=== PATIENT | female | born 1965 | race Two or more races ===

== ENCOUNTER → 2018-05-01 | Outpatient (CLI) | payer BC, OTHER ==
--- NOTE | 2018-05-02 16:13 | WOMENS IMAGING REPORT ---
EXAM DESCRIPTION: 3D SCREENING MAMMO BILAT COMPLETED DATE/TIME: 05/01/2018 11:03 am REASON FOR STUDY: SCREENING MAMMO Z12.31 ENCNTR SCREEN MAMMOGRAM FOR MALIGNANT NEOPLASM OF ENDY COMPARISON: 11/21/2013 TECHNIQUE: Standard craniocaudal and mediolateral oblique views of each breast recorded using digita l acquisition and breast tomosynthesis. LIMITATIONS: None. FINDINGS: No masses, calcifications or architectural distortion. No areas of suspicion. Read with the assistance of CAD. [facility] R2 Cenova Version 1.3 .[facility] - R2 Cenova Version 1.3 .[facility] Imaging - R2 Cenova Version 2.4 .[facility] - R2 Cenova Version 2.4 .[facility] - R2 [employer]ifier Version 9.2 IMPRESSION: NORMAL MAMMOGRAM. BIRADS 1. BREAST DENSITY: a. The breasts are almost entirely fatty. BIRAD: 1 NEGATIVE RECOMMENDATION: ROUTINE SCREENING Please continue yearly bilateral screening mammography/tomosynthesis in April 2019. COMMENT: The patient has been notified of the results by letter per [place] requirements. Additional no tification policies are in place for contacting patient with suspicious or incomplete findings. Quality ID #[id number]: The [employer] recommends an annual screening mammogram for women aged 40 years or over. This facility utilizes a reminder system to ensure that all patients receive reminder letters, and/or direct phone calls for appointments. This includes reminders for routine scr eening mammograms, diagnostic mammograms, or other Breast Imaging Interventions when appropriate. Th is patient will be placed in the appropriate reminder system. The [employer] (ACR) has developed recommendations for screening MRI of the breast s in certain patient populations, to be used in conjunction with mammography. Breast MRI surveillanc e may be appropriate for women with more than 20% lifetime risk of developing breast cancer as deter mined by genetic testing, significant family history of the disease, or history of mantle radiation f or Hodgkins Disease. ACR Practice Guidelines 2008. DBT Technology DBT is a type of tomographic mammography. With conventional mammography, overlapping breast tissue ma y make lesions difficult to detect, even with good compression. DBT uses an x-ray tube that rotates a round the breast, taking images at different angles. These images are then combined to create thin sl ices of the breast that the radiologist can view as a 3D reconstruction. The [employer] unit can perform full-field digital mammograms (2D imaging); or DBT (3D imaging); or both, in a combination mode that quickly performs both the mammogram and the tomosynthesis scan while the breast is still compressed. PQRS 6045F: Fluoroscopic imaging is not utilized for breast tomosynthesis. TECHNICAL DOCUMENTATION: FINDING NUMBER: (1) ASSESSMENT: (1) JOB ID: [id number] [employer]- All Rights Reserved Reading location - IP/workstation name: [email or web address]
== END ==
LOC: WI 09:38
PROVIDERS: ATTEND Internal Medicine
DX: Z12.31 Encounter for screening mammogram for malignant neoplasm of breast (principal)
CPT/HCPCS: 77063; 77067

== ENCOUNTER 2018-05-04 18:15 | Inpatient (IN) | payer OTHER ==
[2018-05-04] MEDS ORDERED: NORMAL SALINE 1000 ML 1,000 ML IV ONE ×2 (19:16→20:33)
--- NOTE | 2018-05-04 19:17 | ER Document Report ---
ED Medical Screen (RME) - General Chief Complaint: High Blood Sugar Stated Complaint: HIGH BLOOD SUGAR Time Seen by Provider: 05/04/18 19:13 TRAVEL OUTSIDE OF THE [place] IN LAST 30 DAYS: No - HPI Patient complains to provider of: Hyperglycemia Notes: 05/04/18 19:17 Patient is a 53-year-old female presenting to the emergency room complaining of increased thirst and increased urination over the past few days, took a blood sugar at home and it read high, reading high in triage area as well, no history of diabetes PRIOR to day - Related Data Allergies/Adverse Reactions: codeine [Codeine] Allergy (Mild, Verified 03/28/14 07:05) crazy Past Medical History - Past Medical History Cardiac Medical History: Reports: Hx Coronary Artery Disease, Hx Hypertension Denies: Hx Heart Attack Pulmonary Medical History: Denies: Hx Asthma, Hx Bronchitis, Hx COPD, Hx Pneumonia Neurological Medical History: Denies: Hx Cerebrovascular Accident, Hx Seizures Musculoskeltal Medical History: Denies Hx Arthritis Past Surgical History: Reports: Hx Hysterectomy - Immunizations Hx Diphtheria, Pertussis, Tetanus Vaccination: Yes Physical Exam - Vital signs Vitals: Temp Pulse Resp BP Pulse Ox 97.9 F 90 20 96/67 L 100 05/04/18 18:40 05/04/18 18:40 05/04/18 18:40 05/04/18 18:40 05/04/18 18:40 Course - Vital Signs Vital signs: Temp Pulse Resp BP Pulse Ox 97.9 F 90 20 96/67 L 100 05/04/18 18:40 05/04/18 18:40 05/04/18 18:40 05/04/18 18:40 05/04/18 18:40 Doctor's Discharge - Discharge Referrals: CHERISE SANTIAGO MD [Primary Care Provider] - Follow up as needed
[2018-05-04 19:58] LABS: ABSOLUTE BASOPHILS # (AUTO) 0.1 10^3/uL (0.0-0.2); ABSOLUTE EOSINOPHILS # (AUTO) 0.1 10^3/uL (0.0-0.6); ABSOLUTE LYMPHOCYTES (AUTO) 3.8 10^3/uL (0.5-4.7); ABSOLUTE MONOCYTES (AUTO) 0.7 10^3/uL (0.1-1.4); ABSOLUTE NEUT (AUTO) 6.2 10^3/uL (1.7-8.2); BASOPHILS % (AUTO) 1.1 % (0-2); EOSINOPHILS % (AUTO) 0.6 % (0-6); HEMATOCRIT 44.7 % (36.0-47.0); HEMOGLOBIN 14.5 g/dL (12.0-15.5); MEAN CORPUSCULAR HGB CONC 32.5 g/dL (32.0-36.0); MEAN CORPUSCULAR VOLUME 80 fl (80-97); MONOCYTES % (AUTO) 6.8 % (3-13); PLATELET COUNT 397 10^3/uL (150-450); RED BLOOD COUNT 5.58 10^6/uL (3.72-5.28); RED CELL DISTRIBUTION WIDTH 16.6 % (11.5-14.0); SEGMENTED NEUTROPHILS % (AUTO) 56.5 % (42-78); TOTAL CELLS COUNTED % (AUTO) 100 %
[2018-05-04 20:13] LABS: APPEARANCE,URINE CLEAR; BILIRUBIN,URINE NEGATIVE (NEGATIVE); COLOR,URINE STRAW; GLUCOSE, URINE >=500 mg/dL (NEGATIVE); KETONES,URINE 20 mg/dL (NEGATIVE); LEUKOCYTE ESTERASE,URINE NEGATIVE (NEGATIVE); NITRITE,URINE NEGATIVE (NEGATIVE); PROTEIN,URINE NEGATIVE (NEGATIVE); URINE SPECIFIC GRAVITY 1.028; UROBILINOGEN,URINE NEGATIVE mg/dL (<2.0)
[2018-05-04 20:21] LABS: ALANINE AMINOTRANSFERASE 36 U/L (9-52); ALBUMIN 4.9 g/dL (3.5-5.0); ALKALINE PHOSPHATASE 131 U/L (38-126); ASPARTATE AMINO TRANSFERASE 25 U/L (14-36); BILIRUBIN,DIRECT 0.5 mg/dL (0.0-0.4); BILIRUBIN,TOTAL 0.7 mg/dL (0.2-1.3); BLOOD UREA NITROGEN 22 mg/dL (7-20); CALCIUM 9.9 mg/dL (8.4-10.2); POTASSIUM 5.2 mmol/L (3.6-5.0); TOTAL PROTEIN 8.6 g/dL (6.3-8.2)
[2018-05-04 20:27] LABS: CARBON DIOXIDE 22 mmol/L (22-30); CHLORIDE 94 mmol/L (98-107); SODIUM 137.8 mmol/L (137-145)
[2018-05-04 20:28] LABS: ANION GAP 22 (5-19)
[2018-05-04 20:32] LABS: GLUCOSE 647 mg/dL (75-110)
[2018-05-04] MEDS ORDERED: NORMAL SALINE 100 ML with INSULIN REGULAR, HUMAN 100 UNIT IV PRN ×2 (20:36)
[2018-05-04] MEDS ORDERED: DEXTROSE 40% GEL 15 GM TUBE PO PRN ×2 (20:36)
[2018-05-04] MEDS ORDERED: GLUCAGON,HUMAN RECOMB 1 MG INJ IM PRN (20:36)
[2018-05-04] MEDS ORDERED: DEXTROSE 50%-WATER 25 GM/50 ML DISP.SYRIN IV PRN ×2 (20:36)
[2018-05-04 21:16] LABS: VENOUS BLOOD HCO3 20.1 mmol/L (20-32); VENOUS BLOOD PCO2 37.7 mmHg (35-63); VENOUS BLOOD PH 7.34 (7.30-7.42)
[2018-05-04] MEDS ORDERED: METFORMIN HCL 500 MG TABLET PO ONE (22:00)
[2018-05-04] MEDS ORDERED: INSULIN REG, HUMAN 100 UNIT/ML 3 ML VIAL (PYX) IV ONE (22:00)
--- NOTE | 2018-05-04 22:04 | ER Document Report ---
ED General - General Chief Complaint: High Blood Sugar Stated Complaint: HIGH BLOOD SUGAR Time Seen by Provider: 05/04/18 19:13 TRAVEL OUTSIDE OF THE [place] IN LAST 30 DAYS: No - HPI Notes: 53-year-old female presents from urgent care with elevated blood sugar. She has had intermittent blurry vision and increased urination over the past few days. Blurry vision worsened today while looking at the computer. She went to urgent care and was told that her blood sugar was elevated. It was advised to come to the emergency department. Denies any nausea, vomiting, abdominal pain, diarrhea. Denies family history of diabetes. No fevers chills. No pain with urination. - Related Data Allergies/Adverse Reactions: codeine [Codeine] Allergy (Mild, Verified 03/28/14 07:05) crazy Past Medical History - Social History Smoking Status: Never Smoker Chew tobacco use (# tins/day): No Frequency of alcohol use: None Drug Abuse: None Family History: Reviewed & Not Pertinent Patient has suicidal ideation: No Patient has homicidal ideation: No - Past Medical History Cardiac Medical History: Reports: Hx Coronary Artery Disease, Hx Hypertension Denies: Hx Heart Attack Pulmonary Medical History: Denies: Hx Asthma, Hx Bronchitis, Hx COPD, Hx Pneumonia Neurological Medical History: Denies: Hx Cerebrovascular Accident, Hx Seizures Renal/ Medical History: Denies: Hx Peritoneal Dialysis Musculoskeletal Medical History: Denies Hx Arthritis Past Surgical History: Reports: Hx Hysterectomy - Immunizations Hx Diphtheria, Pertussis, Tetanus Vaccination: Yes Review of Systems - Review of Systems Notes: REVIEW OF SYSTEMS: CONSTITUTIONAL: -fevers, -chills EENT: -eye pain, -difficulty swallowing, -nasal congestion, + blurry vision CARDIOVASCULAR: -chest pain, -syncope. RESPIRATORY: -cough, -SOB GASTROINTESTINAL: -abdominal pain, -nausea, -vomiting, -diarrhea GENITOURINARY: -dysuria, -hematuria, + increased urination MUSCULOSKELETAL: -back pain, -neck pain SKIN: -rash or skin lesions. HEMATOLOGIC: -easy bruising or bleeding. LYMPHATIC: -swollen, enlarged glands. NEUROLOGICAL: -altered mental status or loss of consciousness, -headache, - neurologic symptoms PSYCHIATRIC: -anxiety, -depression. Physical Exam - Vital signs Vitals: Temp Pulse Resp BP Pulse Ox 97.9 F 90 20 96/67 L 100 05/04/18 18:40 05/04/18 18:40 05/04/18 18:40 05/04/18 18:40 05/04/18 18:40 - Notes Notes: PHYSICAL EXAMINATION: GENERAL: Well-appearing, well-nourished and in no acute distress. Morbid obesity HEAD: Atraumatic, normocephalic. EYES: Pupils equal round and reactive to light, extraocular movements intact, conjunctiva are normal. ENT: nares patent, oropharynx clear without exudates. Moist mucous membranes. NECK: Normal range of motion, supple without lymphadenopathy LUNGS: Breath sounds clear to auscultation bilaterally and equal. No wheezes rales or rhonchi. HEART: Regular rate and rhythm, no chest wall tenderness ABDOMEN: Soft, nontender, normoactive bowel sounds. No guarding, no rebound. No masses appreciated. EXTREMITIES: Normal range of motion, no pitting or edema. No cyanosis. NEUROLOGICAL: Cranial nerves grossly intact. Normal speech, normal gait. Normal sensory and motor exams. PSYCH: Normal mood, normal affect. SKIN: Warm, Dry, normal turgor, no rashes or lesions noted. Course - Re-evaluation Re-evalutation: 05/04/18 22:04 Blood sugar elevated without signs of diabetic ketoacidosis. We will start metformin and give a dose of IV insulin and recheck blood sugar. Asymptomatic. 05/04/18 23:55 Patient developed severe muscle cramps and spasms shortly after receiving metformin and insulin. She has carpal spasm with reddening of her palms. She denies similar symptoms in the past. She was prescribed metformin at urgent care today, but did not take a dose. she was given 15 units of SC humulin at urgent care. She is feeling slightly more comfortable after Ativan and Toradol. Discussed with hospitalist for possible admission, and he recommended discharge with prescription for Amaryl. Will monitor for 1 more hour and recheck blood sugar again prior to discharge. will discuss with DR Root at shift change for further monitoring. - Vital Signs Vital signs: Temp Pulse Resp BP Pulse Ox 97.9 F 90 22 H 141/102 H 100 05/04/18 18:40 05/04/18 18:40 05/04/18 20:57 05/04/18 20:57 05/04/18 20:57 - Laboratory Result Diagrams: 05/04/18 19:33 05/04/18 19:33 Laboratory results interpreted by me: 05/04/18 05/04/18 05/04/18 19:33 19:33 19:33 WBC 11.0 H RBC 5.58 H MCH 26.0 L RDW 16.6 H Potassium 5.2 H Chloride 94 L Anion Gap 22 H BUN 22 H Glucose 647 H* Direct Bilirubin 0.5 H Alkaline Phosphatase 131 H Total Protein 8.6 H Urine Glucose (UA) >=500 H Urine Ketones 20 H Urine Blood SMALL H - Transfer of Care Care transferred to following provider: Dk Discharge - Discharge Clinical Impression: Hyperglycemia Condition: Good Disposition: HOME, SELF-CARE Instructions: Diabetes ([facility]) Additional Instructions: Decrease carbohydrates in diet. Monitor blood sugar daily and keep a log. You must follow-up closely with a primary care physician for further management. Return for worsening or concerning symptoms. HYPERGLYCEMIA (HIGH BLOOD SUGAR): You have an abnormally high blood sugar. Not all high blood sugar requires long-term treatment. High blood sugar can be due to medications, , or the stress of illness. (These cases are "borderline diabetes.") If the doctor feels your high blood sugar might resolve with time, you may not require treatment now. It's very important that you follow through, to see if the blood sugar returns to normal levels. Uncontrolled high blood sugar leads to early heart disease, strokes, nerve damage, eye damage, and kidney damage. Call the physician if there is faintness, excess sleepiness, or very rapid breathing. DIABETES: You have an abnormally high blood sugar, suspicious for diabetes. Not all high blood sugar requires long-term treatment. High blood sugar can be due to medications, , or the stress of illness. (These cases are "borderline diabetes.") If the doctor feels your high blood sugar might get better with time, you may not require treatment now. It's very important that you follow through. Uncontrolled high blood sugar leads to early heart disease, strokes, nerve damage, eye damage, and kidney damage. All diabetics should follow a diet designed to control the blood sugar. Overweight diabetics should exercise regularly and lose weight. If this is not sufficient to control the blood sugar, pills or insulin shots are necessary. Younger people who develop diabetes almost always require insulin daily. Home testing of blood sugars or urine sugar is required. Diabetic teaching is available to help you figure insulin doses and monitor the blood sugar. Call the physician if there is faintness, excess sleepiness, or very rapid breathing. If hypoglycemia (LOW blood sugar) develops, symptoms are shakiness, weakness, sweating, and confusion. In this case, you should eat or drink something with sugar at once. INSULIN: Insulin is a natural hormone that lowers blood sugar. Normal blood sugar prevents complications of diabetes. For most diabetics, insulin is the best way to treat the illness. Be sure you know how to measure the insulin correctly. Insulin is measured in "units." There are three types of insulin: N (NPH or long acting), R (regular or short acting), and L (Lente or very long acting). Be sure you are using the right amount of each type. Insulin must be injected into the fat. You can use the abdomen, upper arms , and thighs. Select a different injection site every time. Wipe the site with alcohol before injecting. When first starting insulin, some adjusting of the insulin dose is necessary. Keep a record of each insulin dose and time of injection, and of the blood sugar and the time you test it. Sometimes insulin can make the blood sugar too low. If you become dizzy, sweaty, shaky, or confused, you may be having a hypoglycemic episode. Immediately use juice or some other sweet food. Call the doctor if the symptoms don't go away. ORAL HYPOGLYCEMIC MEDICATION: Oral hypoglycemics are medicines that lower blood sugar in diabetics. They are not effective for younger diabetics who require insulin. Some brands are tolbutamide, Orinase, glipizide, Glucotrol, glyburide, DiaBeta, Glynase, and Micronase. Some medications can increase or decrease the effect of Diabinese. Examples are Clofibrate (Atromid-S), phenylbutazone (Butazolidin), aspirin, sulfonamides, Coumadin, allopurinol (Zyloprim), probenecid (Benemid), acetazolamide (Diamox), beta blockers, steroids, estrogens, Indocin, INH, Levothyroxine, nicotinic acid, Diflucan, Dilantin, and thiazide diuretics. Be sure your doctor knows all the medicines you take, and talk to your doctor before making any changes in your medicines. If you develop symptoms of shakiness, sweats, and lightheadedness, your blood sugar may have gone too low. Eat or drink a small amount of sweet food. If symptoms don't go away, call your doctor. FOLLOW-UP CARE: If you have been referred to a physician for follow-up care, call the physician s office for an appointment as you were instructed or within the next two days. If you experience worsening or a significant change in your symptoms, notify the physician immediately or return to the Emergency Department at any time for re-evaluation. Referrals: CHERISE SANTIAGO MD [Primary Care Provider] - Follow up in 3-5 days
[2018-05-04] MEDS ORDERED: KETOROLAC TROMETHAMINE INJ/PF 30 MG/1 ML SDV IV ONE (23:10)
[2018-05-04] MEDS ORDERED: LORAZEPAM INJ 2 MG/1 ML VIAL IV ONE (23:15)
[2018-05-05] MEDS ORDERED: DEXTROSE 50%-WATER SYRINGE 25 GM/50 ML DOSE IV PRN (03:53)
[2018-05-05] MEDS ORDERED: DEXTROSE 40% GEL 15 GM TUBE PO PRN (03:53)
[2018-05-05] MEDS ORDERED: GLUCAGON,HUMAN RECOMB 1 MG INJ IM PRN (03:53)
[2018-05-05] MEDS ORDERED: DEXTROSE 40% GEL 15 GM TUBE X 2 PO PRN (03:53)
[2018-05-05] MEDS ORDERED: DEXTROSE 50%-WATER SYRINGE 12.5 GM/25 ML DOSE IV PRN (03:53)
[2018-05-05] MEDS: INSULIN LISPRO 100 UNIT/ML 3 ML VIAL SUBCUT PRN ×5 (08:32→22:26)
[2018-05-05] MEDS: AMLODIPINE BESYLATE 10 MG TABLET PO SCH (09:28)
[2018-05-05] MEDS: HYDROCHLOROTHIAZIDE 25 MG TABLET PO SCH (09:28)
[2018-05-05] MEDS: VALSARTAN 160 MG TABLET PO SCH (09:28)
[2018-05-05] MEDS ORDERED: CLINDAMYCIN HCL 150 MG CAPSULE PO SCH (10:00)
[2018-05-05] MEDS ORDERED: METFORMIN HCL 500 MG TABLET PO SCH (10:00)
[2018-05-05] MEDS ORDERED: NYSTATIN 500000 UNIT/5 ML UDCUP PO SCH (10:00)
[2018-05-05] MEDS ORDERED: (PENDING PHARMACY ID) (Amlodipine/Valsartan/Hcthiazid [Amlod-Valsa-Hctz 10-320-25 Mg] 1 TA PO SCH (10:00)
[2018-05-05 10:29] LABS: ALANINE AMINOTRANSFERASE 35 U/L (9-52); ALKALINE PHOSPHATASE 102 U/L (38-126); ASPARTATE AMINO TRANSFERASE 17 U/L (14-36); BILIRUBIN,DIRECT 0.4 mg/dL (0.0-0.4); BILIRUBIN,TOTAL 0.6 mg/dL (0.2-1.3); BLOOD UREA NITROGEN 22 mg/dL (7-20); CALCIUM 9.3 mg/dL (8.4-10.2); CHOLESTEROL 223.19 mg/dL (0-200); POTASSIUM 4.9 mmol/L (3.6-5.0); TOTAL PROTEIN 7.1 g/dL (6.3-8.2); TRIGLYCERIDES 153 mg/dL (<150)
[2018-05-05 10:34] LABS: CARBON DIOXIDE 17 mmol/L (22-30); CHLORIDE 98 mmol/L (98-107); SODIUM 139.1 mmol/L (137-145)
[2018-05-05 10:39] LABS: DIRECT LDL 170 mg/dL (<100)
[2018-05-05 10:44] LABS: VLDL CHOLESTEROL 30.6 mg/dL (10-31)
[2018-05-05 10:45] LABS: ANION GAP 24 (5-19)
[2018-05-05 10:48] LABS: GLUCOSE 498 mg/dL (75-110)
[2018-05-05] MEDS ORDERED: INSULIN LISPRO 100 UNIT/ML 3 ML VIAL SUBCUT ONE ×2 (12:00→16:00)
--- NOTE | 2018-05-05 12:41 | PDOC H&P ---
History of Present Illness Admission Date/PCP: 05/05/18 00:26 CHERISE SANTIAGO MD Patient complains of: Elevated blood sugar History of Present Illness: MITA HOUSE is a 53 year old female patient of Dr Santiago who presented to the ED with complain of elevated blood glucose. She reported history of diagnosis of borderline diabetes mellitus couple of years ago. Patient reported recent intermittent blurry vision, increase thirst, polydipsia, polyuria, dry mouth, and tingling in her fingers. She has history of hypertension. She denied history of hyperlipidemia. No family history of diabetes mellitus. Patient admitted to less physical activity due to longstanding lower back pain. She reported recent episode of oral thrush. She denied any fever or chills. No chest pain or difficulty with breathing. Her evaluation in the ED was significant for hyperglycemia. in the course of her treatment she was given Insulin bolus and oral metformin which cause severe abdominal pain. She was given Metformin on empty stomach. Her last meal prior to administration was 1 pm. Past Medical History Cardiac Medical History: Reports: Coronary Artery Disease, Hypertension Denies: Congestive Heart Failure, Myocardial Infarction Pulmonary Medical History: Denies: Asthma, Bronchitis, Chronic Obstructive Pulmonary Disease (COPD), Pneumonia Neurological Medical History: Denies: Seizures Musculoskeltal Medical History: Denies: Arthritis Hematology: Reports: Anemia Past Surgical History Past Surgical History: Reports: Hysterectomy Social History Smoking Status: Former Smoker Drugs: None - Advance Directive Resuscitation Status: Full Code Family History Family History: Reviewed & Not Pertinent Parental Family History Reviewed: Yes Children Family History Reviewed: Yes Sibling(s) Family History Reviewed.: Yes Medication/Allergy Home Medications: Amlodipine/Valsartan/Hcthiazid [Shkud-Uqfie-Ukkk 10-320-25 mg] 1 tab PO DAILY Clindamycin HCl [Clindamycin HCl] 300 mg PO Q8 MDD FILLED 04/27 FOR 10DS Glipizide [Glocotrol 5 Mg Tablet] 5 mg PO BID 05/05/18 Metformin HCl [Glucophage 500 mg Tablet] 1,000 mg PO BIDACBS 05/05/18 Nystatin 4 tsp PO QID 05/05/18 Allergies/Adverse Reactions: codeine [Codeine] Allergy (Mild, Verified 03/28/14 07:05) crazy Review of Systems Constitutional: ABSENT: chills, fever(s), headache(s), weight gain, weight loss Eyes: PRESENT: visual disturbances - improving as per her assessment Ears: ABSENT: hearing changes Nose, Mouth, and Throat: ABSENT: as per HPI, headache(s), mouth pain, sore throat, vertigo, other Cardiovascular: ABSENT: chest pain, dyspnea on exertion, edema, orthropnea, palpitations Respiratory: ABSENT: cough, hemoptysis Gastrointestinal: PRESENT: abdominal pain - with Metformin administration on empty stomach. ABSENT: constipation, diarrhea, hematemesis, hematochezia, nausea, vomiting Musculoskeletal: PRESENT: back pain - chronic Integumentary: ABSENT: rash, wounds Neurological: ABSENT: abnormal gait, abnormal speech, confusion, dizziness, focal weakness, syncope Psychiatric: ABSENT: anxiety, depression, homidical ideation, suicidal ideation Endocrine: PRESENT: polydipsia, polyuria. ABSENT: as per HPI, cold intolerance , flushing, heat intolerance, menstrual abnormalities, polyphagia, other Hematologic/Lymphatic: ABSENT: easy bleeding, easy bruising, lymphadenopathy Allergic/Immunologic: ABSENT: seasonal rhinorrhea Physical Exam Vital Signs: Temp Pulse Resp BP Pulse Ox 98.6 F 91 18 145/77 H 100 05/05/18 08:35 05/05/18 08:35 05/05/18 08:35 05/05/18 08:35 05/05/18 08:35 Intake & Output 05/04/18 05/05/18 05/06/18 06:59 06:59 06:59 Intake Total 465 Balance 465 Weight 168.8 kg General appearance: PRESENT: morbidly obese Head exam: PRESENT: atraumatic, normocephalic Eye exam: PRESENT: conjunctiva pink, EOMI, PERRLA. ABSENT: scleral icterus Ear exam: PRESENT: normal external ear exam Mouth exam: PRESENT: moist, tongue midline Teeth exam: PRESENT: poor dentation. ABSENT: dental caries, dental tenderness, edentulous, other Throat exam: ABSENT: post pharyngeal erythema, tonsillar erythema, tonsillar exudate, tonsillogmegaly, other Neck exam: PRESENT: full ROM. ABSENT: carotid bruit, JVD, lymphadenopathy, thyromegaly Respiratory exam: PRESENT: clear to auscultation ric Cardiovascular exam: PRESENT: RRR. ABSENT: diastolic murmur, rubs, systolic murmur Pulses: PRESENT: normal dorsalis pedis pul, +2 pedal pulses bilateral Vascular exam: PRESENT: normal capillary refill. ABSENT: pallor GI/Abdominal exam: PRESENT: normal bowel sounds, soft. ABSENT: distended, guarding, mass, organolmegaly, rebound, tenderness Rectal exam: PRESENT: deferred Extremities exam: ABSENT: pedal edema Musculoskeletal exam: PRESENT: normal inspection Neurological exam: PRESENT: alert, awake, oriented to person, oriented to place , oriented to time, oriented to situation, CN II-XII grossly intact. ABSENT: motor sensory deficit Psychiatric exam: PRESENT: appropriate affect, normal mood. ABSENT: homicidal ideation, suicidal ideation Skin exam: PRESENT: dry, intact, warm. ABSENT: cyanosis, rash Results Laboratory Results: 05/05/18 09:44 05/05/18 05/05/18 06:46 09:44 Sodium Cancelled 139.1 Potassium Cancelled 4.9 Chloride Cancelled 98 Carbon Dioxide Cancelled 17 L Anion Gap Cancelled 24 H BUN Cancelled 22 H Creatinine Cancelled 0.89 Est GFR ( Amer) Cancelled > 60 Est GFR (Non-Af Amer) Cancelled > 60 Glucose Cancelled 498 H* Calcium Cancelled 9.3 Total Bilirubin Cancelled 0.6 AST Cancelled 17 ALT Cancelled 35 Alkaline Phosphatase Cancelled 102 Total Protein Cancelled 7.1 Albumin Cancelled 4.0 Triglycerides Cancelled 153 H Cholesterol Cancelled 223.19 H LDL Cholesterol Direct Cancelled 170 H VLDL Cholesterol Cancelled 30.6 HDL Cholesterol Cancelled 43 Assessment & Plan - Diagnosis (1) Diabetes mellitus type 2, uncontrolled Qualifiers: Diabetes mellitus emt intermediate insulin use: without residential use Diabetes mellitus complication status: with hyperglycemia Qualified Code(s): E11.65 - Type 2 diabetes mellitus with hyperglycemia Is this a current diagnosis for this admission?: Yes Plan: See admitting attending physician orders (2) Morbid obesity with BMI of 60.0-69.9, adult Is this a current diagnosis for this admission?: Yes Plan: See admitting attending physician orders (3) HTN (hypertension) Qualifiers: Hypertension type: essential hypertension Qualified Code(s): I10 - Essential (primary) hypertension Is this a current diagnosis for this admission?: Yes Plan: See admitting attending physician orders (4) HLD (hyperlipidemia) Qualifiers: Hyperlipidemia type: pure hypercholesterolemia Qualified Code(s): E78.00 - Pure hypercholesterolemia, unspecified; E78.0 - Pure hypercholesterolemia Is this a current diagnosis for this admission?: Yes Plan: See admitting attending physician orders - Time Time Spent: 50 to 70 Minutes Medications reviewed and adjusted accordingly: Yes Anticipated discharge: Home Within: Other - Inpatient Certification Based on my medical assessment, after consideration of the patient's comorbidities, presenting symptoms, or acuity I expect that the services needed warrant INPATIENT care.: Yes I certify that my determination is in accordance with my understanding of Medicare's requirements for reasonable and necessary INPATIENT services [42 CFR 412.3e].: Yes Medical Necessity: Need Close Monitoring Due to Risk of Patient Decompensation, Need For IV Fluids, Risk of Complication if Not Cared For in Hospital Post Hospital Care: D/C Utilization Review Rn Documentation - Plan Summary Plan Summary: See admitting attending physician orders
[2018-05-05] MEDS: NORMAL SALINE 1000 ML 1,000 ML IV PRN (14:32)
[2018-05-05] MEDS: METFORMIN HCL 500 MG TABLET PO SCH (17:02)
[2018-05-05] MEDS: GLIPIZIDE 5 MG TABLET PO SCH (17:08)
[2018-05-05] MEDS: ATORVASTATIN CALCIUM 20 MG TABLET PO SCH (22:26)
[2018-05-06] MEDS: NORMAL SALINE 1000 ML 1,000 ML IV PRN (05:02)
[2018-05-06 06:16] LABS: ALANINE AMINOTRANSFERASE 32 U/L (9-52); ALBUMIN 3.4 g/dL (3.5-5.0); ALKALINE PHOSPHATASE 89 U/L (38-126); ANION GAP 14 (5-19); ASPARTATE AMINO TRANSFERASE 17 U/L (14-36); BILIRUBIN,DIRECT 0.4 mg/dL (0.0-0.4); BILIRUBIN,TOTAL 0.5 mg/dL (0.2-1.3); BLOOD UREA NITROGEN 22 mg/dL (7-20); CALCIUM 9.3 mg/dL (8.4-10.2); CARBON DIOXIDE 21 mmol/L (22-30); CHLORIDE 102 mmol/L (98-107); GLUCOSE 275 mg/dL (75-110); POTASSIUM 4.4 mmol/L (3.6-5.0); SODIUM 137.3 mmol/L (137-145); TOTAL PROTEIN 6.3 g/dL (6.3-8.2)
[2018-05-06] MEDS: METFORMIN HCL 500 MG TABLET PO SCH ×2 (07:45→16:46)
[2018-05-06] MEDS: INSULIN LISPRO 100 UNIT/ML 3 ML VIAL SUBCUT PRN ×4 (07:46→22:13)
[2018-05-06] MEDS: AMLODIPINE BESYLATE 10 MG TABLET PO SCH (09:28)
[2018-05-06] MEDS: GLIPIZIDE 5 MG TABLET PO SCH ×2 (09:28→16:46)
[2018-05-06] MEDS: HYDROCHLOROTHIAZIDE 25 MG TABLET PO SCH (09:28)
[2018-05-06] MEDS: VALSARTAN 160 MG TABLET PO SCH (09:28)
--- NOTE | 2018-05-06 16:26 | PDOC PROGRESS REPORT ---
Subjective Progress Note for:: 05/06/18 Subjective:: Patient is more compliant with medication administration. Hyperglycemia is improving comparatively. Remain on IV fluid support. No chest pain or difficulty with breathing. Reason For Visit: DIABETES MELLITUS TYPE 2 UNCONTROLLED, HTN, HLD Physical Exam Vital Signs: Temp Pulse Resp BP Pulse Ox 97.7 F 96 18 114/79 100 05/06/18 12:00 05/06/18 14:00 05/06/18 12:00 05/06/18 12:00 05/06/18 12:00 Intake & Output 05/05/18 05/06/18 05/07/18 06:59 06:59 06:59 Intake Total 2641 Balance 2641 Weight 169.8 kg General appearance: PRESENT: no acute distress, morbidly obese Head exam: PRESENT: atraumatic, normocephalic Eye exam: PRESENT: conjunctiva pink, EOMI, PERRLA. ABSENT: scleral icterus Mouth exam: PRESENT: moist, neck supple, tongue midline Respiratory exam: PRESENT: clear to auscultation ric Cardiovascular exam: PRESENT: RRR. ABSENT: diastolic murmur, rubs, systolic murmur Vascular exam: PRESENT: normal capillary refill. ABSENT: pallor GI/Abdominal exam: PRESENT: normal bowel sounds, soft. ABSENT: distended, guarding, mass, organolmegaly, rebound, tenderness Rectal exam: PRESENT: deferred Extremities exam: ABSENT: pedal edema Musculoskeletal exam: PRESENT: normal inspection Neurological exam: PRESENT: alert, awake, oriented to person, oriented to place , oriented to time, oriented to situation, CN II-XII grossly intact. ABSENT: motor sensory deficit Psychiatric exam: PRESENT: appropriate affect, normal mood. ABSENT: homicidal ideation, suicidal ideation Skin exam: PRESENT: dry, intact, warm. ABSENT: cyanosis, rash Results Laboratory Results: 05/06/18 04:26 05/06/18 04:26 Sodium 137.3 Potassium 4.4 Chloride 102 Carbon Dioxide 21 L Anion Gap 14 BUN 22 H Creatinine 0.70 Est GFR ( Amer) > 60 Est GFR (Non-Af Amer) > 60 Glucose 275 H Calcium 9.3 Total Bilirubin 0.5 AST 17 ALT 32 Alkaline Phosphatase 89 Total Protein 6.3 Albumin 3.4 L Assessment & Plan - Diagnosis (1) Diabetes mellitus type 2, uncontrolled Qualifiers: Diabetes mellitus [facility]cfp insulin use: without dietary services director use Diabetes mellitus complication status: with hyperglycemia Qualified Code(s): E11.65 - Type 2 diabetes mellitus with hyperglycemia Is this a current diagnosis for this admission?: Yes (2) Morbid obesity with BMI of 60.0-69.9, adult Is this a current diagnosis for this admission?: Yes (3) HTN (hypertension) Qualifiers: Hypertension type: essential hypertension Qualified Code(s): I10 - Essential (primary) hypertension Is this a current diagnosis for this admission?: Yes (4) HLD (hyperlipidemia) Qualifiers: Hyperlipidemia type: pure hypercholesterolemia Qualified Code(s): E78.00 - Pure hypercholesterolemia, unspecified; E78.0 - Pure hypercholesterolemia Is this a current diagnosis for this admission?: Yes - Time Time Spent with patient: 25-34 minutes Medications reviewed and adjusted accordingly: Yes Anticipated discharge: Home Within: Other - Inpatient Certification Based on my medical assessment, after consideration of the patient's comorbidities, presenting symptoms, or acuity I expect that the services needed warrant INPATIENT care.: Yes I certify that my determination is in accordance with my understanding of Medicare's requirements for reasonable and necessary INPATIENT services [42 CFR 412.3e].: Yes Medical Necessity: Need Close Monitoring Due to Risk of Patient Decompensation, Need For IV Fluids, Need For Continuous Telemetry Monitoring, Risk of Complication if Not Cared For in Hospital Post Hospital Care: D/C Driver Engineer Documentation - Plan Summary Plan Summary: See covering attending physician orders.
[2018-05-06] MEDS ORDERED: SITAGLIPTIN PHOSPHATE 50 MG TABLET PO ONE (18:00)
[2018-05-06] MEDS: ATORVASTATIN CALCIUM 20 MG TABLET PO SCH (22:13)
[2018-05-07] MEDS: METFORMIN HCL 500 MG TABLET PO SCH ×2 (08:52→15:56)
[2018-05-07] MEDS: SITAGLIPTIN PHOSPHATE 50 MG TABLET PO SCH ×2 (08:52→15:56)
[2018-05-07] MEDS: INSULIN LISPRO 100 UNIT/ML 3 ML VIAL SUBCUT PRN ×4 (09:03→21:45)
[2018-05-07] MEDS: HYDROCHLOROTHIAZIDE 25 MG TABLET PO SCH (13:19)
[2018-05-07] MEDS: VALSARTAN 160 MG TABLET PO SCH (13:21)
[2018-05-07] MEDS: GLIPIZIDE 5 MG TABLET PO SCH ×2 (13:22→19:51)
[2018-05-07] MEDS: AMLODIPINE BESYLATE 10 MG TABLET PO SCH (13:22)
--- NOTE | 2018-05-07 20:39 | PDOC DISCHARGE SUMMARY ---
General - Admit/Disc Date/PCP Admission Date/Primary Care Provider: 05/05/18 12:46 CHERISE SANTIAGO MD Discharge Date: 05/07/18 - Discharge Diagnosis (1) Diabetic hyperosmolar non-ketotic state Is this a current diagnosis for this admission?: Yes (2) HLD (hyperlipidemia) Is this a current diagnosis for this admission?: Yes - Additional Information Resuscitation Status: Full Code Prescriptions: Atorvastatin Calcium 40 mg PO DAILY #90 tablet Empagliflozin [Jardiance] 25 mg PO DAILY #90 tablet Metformin HCl 1,000 mg PO BID #180 tablet Sitagliptin Phosphate [Januvia] 100 mg PO DAILY #90 tablet Home Medications: Amlodipine/Valsartan/Hcthiazid [[id number] 10-320-25 mg] 1 tab PO DAILY Clindamycin HCl [Clindamycin HCl] 300 mg PO Q8 MDD FILLED 04/27 FOR 10DS Glipizide [Glocotrol 5 Mg Tablet] 5 mg PO BID 05/05/18 Nystatin 4 tsp PO QID 05/05/18 Atorvastatin Calcium 40 mg PO DAILY #90 tablet 05/07/18 Empagliflozin [Jardiance] 25 mg PO DAILY #90 tablet 05/07/18 Metformin HCl 1,000 mg PO BID #180 tablet 05/07/18 Sitagliptin Phosphate [Januvia] 100 mg PO DAILY #90 tablet 05/07/18 History of Present Illness History of Present Illness: MITA HOUSE is a 53 year old female,She was admitted when she presented with newly diagnosed severe hyperglycemia with hyperosmolar Hospital Course Hospital Course: She was admitted managed for hyperosmolar nonketotic diabetes mellitus, newly diagnosed, she was treated with IV fluid normal saline, insulin, she was seen by family life educator.She also was started on oral hypoglycemic agents Physical Exam Vital Signs: Temp Pulse Resp BP Pulse Ox 97.6 F 98 18 108/65 99 05/07/18 16:00 05/07/18 16:00 05/07/18 16:00 05/07/18 16:00 05/07/18 16:00 Intake & Output 05/06/18 05/07/18 05/08/18 06:59 06:59 06:59 Intake Total 2641 1170 680 Balance 2641 2710 680 Weight 169.8 kg 170.1 kg General appearance: PRESENT: no acute distress, well-developed, well-nourished Head exam: PRESENT: atraumatic, normocephalic Eye exam: PRESENT: conjunctiva pink, EOMI, PERRLA Ear exam: PRESENT: normal external ear exam Mouth exam: PRESENT: moist, tongue midline Neck exam: PRESENT: full ROM Respiratory exam: PRESENT: clear to auscultation ric Cardiovascular exam: PRESENT: RRR, +S1, +S2 Pulses: PRESENT: normal dorsalis pedis pul, +2 pedal pulses bilateral Vascular exam: PRESENT: normal capillary refill GI/Abdominal exam: PRESENT: normal bowel sounds, soft Rectal exam: PRESENT: deferred Neurological exam: PRESENT: alert, awake, oriented to person, oriented to place , oriented to time, oriented to situation, CN II-XII grossly intact Psychiatric exam: PRESENT: appropriate affect, normal mood Skin exam: PRESENT: dry, intact, warm Results Laboratory Results: 05/06/18 04:26 Qualifiers - * PATIENT BEING DISCHARGED WITH ANY OF THE FOLLOWING DIAGNOSIS: No
[2018-05-07] MEDS: ATORVASTATIN CALCIUM 20 MG TABLET PO SCH (21:43)
[2018-05-08] MEDS ORDERED: ACETAMINOPHEN 325 MG TABLET PO PRN (03:41)
[2018-05-08 08:41] VITALS: BP 109/62
[2018-05-08] MEDS: METFORMIN HCL 500 MG TABLET PO SCH (08:49)
[2018-05-08] MEDS: INSULIN LISPRO 100 UNIT/ML 3 ML VIAL SUBCUT PRN (08:50)
[2018-05-08] MEDS: SITAGLIPTIN PHOSPHATE 50 MG TABLET PO SCH (08:50)
[2018-05-08] MEDS: GLIPIZIDE 5 MG TABLET PO SCH (10:06)
[2018-05-08] MEDS: HYDROCHLOROTHIAZIDE 25 MG TABLET PO SCH (10:07)
[2018-05-08] MEDS: AMLODIPINE BESYLATE 10 MG TABLET PO SCH (10:07)
[2018-05-08] MEDS: VALSARTAN 160 MG TABLET PO SCH (10:08)
== END 2018-05-08 10:23 | disposition home or self-care (01) | DRG 638 ==
LOC: ER 18:15 → UNDOADMOB 05-05 00:26 → EH 05-05 00:26 → 2N 05-05 02:34 → OBSVTOIN 05-05 12:46 → EH 05-05 12:46 → 5 05-05 14:24
PROVIDERS: ADMIT Internal Medicine; ATTEND Internal Medicine
DX: E11.00 Type 2 diabetes mellitus with hyperosmolarity without nonketotic hyperglycemic-hyperosmolar coma (NKHHC) (principal); Z68.44 Body mass index [BMI] 60.0-69.9, adult; I11.0 Hypertensive heart disease with heart failure; I50.9 Heart failure, unspecified; Z90.710 Acquired absence of both cervix and uterus; D64.9 Anemia, unspecified; Z87.891 Personal history of nicotine dependence; Z79.84 Long term (current) use of oral hypoglycemic drugs; Z88.6 Allergy status to analgesic agent; E66.01 Morbid (severe) obesity due to excess calories; Z68.20 Body mass index [BMI] 20.0-20.9, adult; E78.5 Hyperlipidemia, unspecified
CPT/HCPCS: 36415; 80053; 80061; 81001; 82803; 82962; 83036; 85025; 94660; 96361; 96374; 96375; 99285; G0378; J1815; J1885; J2060; J7030